=== PATIENT | male | born 1945 ===

== ENCOUNTER 2024-05-25 06:00 | Outpatient (RCR) | payer MEDICARE, SELFPAY | END 2024-06-24 23:59 | disposition home or self-care (01) | LOC: GPT 06:00 | PROVIDERS: Family Provider Nurse Practitioner; PCP Nurse Practitioner; Visit Provider Neurological Surgery | DX: M51.362 Other intervertebral disc degeneration, lumbar region with discogenic back pain and lower extremity pain (principal); M43.16 Spondylolisthesis, lumbar region | CPT/HCPCS: 97110; 97112; 97140; 97161 ==

== ENCOUNTER 2024-06-25 06:00 | Outpatient (RCR) | payer MEDICARE, SELFPAY | END 2024-07-24 23:59 | disposition home or self-care (01) | LOC: GPT 06:00 | PROVIDERS: PCP Nurse Practitioner; Visit Provider Neurological Surgery | DX: M43.16 Spondylolisthesis, lumbar region (principal) | CPT/HCPCS: 97110; 97112; 97140; 97530 ==

== ENCOUNTER 2024-07-25 06:00 | Outpatient (RCR) | payer MEDICARE, SELFPAY | END 2024-08-24 23:59 | disposition home or self-care (01) | LOC: GPT 06:00 | PROVIDERS: PCP Nurse Practitioner; Visit Provider Neurological Surgery | DX: M43.16 Spondylolisthesis, lumbar region (principal) | CPT/HCPCS: 97110; 97112; 97140; 97164; 97530 ==

== ENCOUNTER 2024-08-25 06:00 | Outpatient (RCR) | payer MEDICARE, SELFPAY | END 2024-09-24 23:59 | disposition home or self-care (01) | LOC: GPT 06:00 | PROVIDERS: PCP Nurse Practitioner; Visit Provider Neurological Surgery | DX: M51.362 Other intervertebral disc degeneration, lumbar region with discogenic back pain and lower extremity pain (principal); M43.16 Spondylolisthesis, lumbar region | CPT/HCPCS: 97110; 97140; 97530 ==

== ENCOUNTER 2024-09-25 06:30 | Outpatient (RCR) | payer MEDICARE, SELFPAY | END 2024-10-08 07:12 | disposition home or self-care (01) | LOC: GPT 06:30 | PROVIDERS: PCP Nurse Practitioner; Visit Provider Neurological Surgery | DX: M43.16 Spondylolisthesis, lumbar region (principal); M51.362 Other intervertebral disc degeneration, lumbar region with discogenic back pain and lower extremity pain | CPT/HCPCS: 97110; 97140; 97530 ==